=== PATIENT | male | born 1935 | race Caucasian/White ===

== ENCOUNTER 2016-11-22 22:30 | Emergency (ER) | payer MEDICARE ==
[2016-11-22 22:40] VITALS: BP 175/80; PULSE 63; RESP 18; TEMP 97.5; O2SAT 100
[2016-11-22 22:48] VITALS: BMI 20.3
--- NOTE | 2016-11-22 23:40 | ED PDOC ---
Arrival/HPI - General Historian: Patient, Family - History of Present Illness Time/Duration: Other (48 hours) Symptom Onset: Gradual Symptom Course: Worsening Activities at Onset: Rest, Light Context: Home <YOU WARREN - Last Filed: 11/23/16 01:13> <Carmela Velez - Last Filed: 11/23/16 01:35> - General Chief Complaint: Male Genitourinary Time Seen by Provider: 11/22/16 22:55 - History of Present Illness Narrative History of Present Illness (Text): 11/22/16 23:34 Mr. Gallagher is an 81 year old male with a past medical history significant for BPH and dementia who presents to [place] [facility] [place] with a chief complaint of hematuria of 48 hours duration. Patients niece was at bedside who helped provide translation and HPI when needed, as patients first language is indonesian. Patient reports that since Tuesday, he has had hematuria that has become progressively more gross with each void. Patient denies any dysuria, pyuria, voiding any blood clots, abdominal pain, flank pain, fever, chills, or weight loss. Patients niece reports that she spoke with Dr. Lina Moon on the phone earlier this afternoon and he stated that patient can either be seen by him in the office tomorrow or taken to the Emergency department for further evaluation. Patient also denies chest pain, palpitations, shortness of breath, cough, N/V, diarrhea, constipation, rashes, or any numbness/tingling/weakness of any extremity. (YOU WARREN) Past Medical History - Provider Review Nursing Documentation Reviewed: Yes - Travel History Have you recently traveled outside [place] w/in the past 3 mons?: No - Past History Past History: Non-Contributing - Infectious Disease Hx of Infectious Diseases: None - Tetanus Immunization Tetanus Immunization: Unknown - Cardiac Hx Cardiac Disorders: (denies) - Pulmonary Hx Respiratory Disorders: No (denies) - Neurological Hx Alzheimer's Disease: Yes Hx Dementia: Yes - HEENT Other/Comment: Diff. Hearing (Both Ears) - Renal Hx Renal Disorder: No - Endocrine/Metabolic Hx Endocrine Disorders: No - Hematological/Oncological Hx Blood Disorders: No - Integumentary Hx Dermatological Disorder: No - Musculoskeletal/Rheumatological Hx Musculoskeletal Disorders: No - Gastrointestinal Hx Gastrointestinal Disorders: No (DENIES) - Genitourinary/Gynecological Hx Genitourinary Disorders: Yes Hx Prostate Problems: Yes - Psychiatric Hx Psychophysiologic Disorder: No Hx Substance Use: No - Surgical History Other/Comment: abdl scar noted,somekind of abdl surgery cant remember. hernia removal 2015 - Anesthesia Hx Anesthesia: Yes Hx Anesthesia Reactions: No <YOU WARREN - Last Filed: 11/23/16 01:13> Family/Social History - Physician Review Nursing Documentation Reviewed: Yes Family/Social History: Unknown Family HX Smoking Status: Former Smoker Hx Alcohol Use: No Hx Substance Use: No <YOU WARREN - Last Filed: 11/23/16 01:13> Allergies/Home Meds <YOU WARREN - Last Filed: 11/23/16 01:13> <Carmela Velez - Last Filed: 11/23/16 01:35> Allergies/Adverse Reactions: Allergies No Known Allergies Allergy (Verified 01/21/15 19:32) Review of Systems - Physician Review All systems were reviewed & negative as marked: Yes - Review of Systems Constitutional: Normal. absent: Weight Change, Fevers, Night Sweats Eyes: Normal. absent: Vision Changes ENT: Normal Respiratory: Normal. absent: SOB, Cough Cardiovascular: Normal. absent: Chest Pain, Palpitations Gastrointestinal: Normal. absent: Abdominal Pain, Constipation, Diarrhea, Nausea, Vomiting Genitourinary Male: Hematuria, Other (denied pyruia or voiding any blood clots) . absent: Normal, Dysuria, Frequency Musculoskeletal: Normal. absent: Back Pain, Neck Pain Skin: Normal. absent: Rash Neurological: Normal. absent: Headache, Dizziness Endocrine: Normal Hemo/Lymphatic: Normal Psychiatric: Normal <YOU WARREN - Last Filed: 11/23/16 01:13> Physical Exam Vital Signs Reviewed: Yes Temperature: Afebrile Blood Pressure: Hypertensive Pulse: Regular Respiratory Rate: Normal Appearance: Positive for: Well-Appearing, Non-Toxic, Comfortable Pain Distress: None Mental Status: Positive for: Alert and Oriented X 3 - Systems Exam Head: Present: Atraumatic, Normocephalic Pupils: Present: PERRL Extroacular Muscles: Present: EOMI Conjunctiva: Present: Normal Mouth: Present: Moist Mucous Membranes Neck: Present: Normal Range of Motion, Trachea Midline. No: Meningeal Signs, MIDLINE TENDERNESS, Paraspinal Tenderness, JVD, Lymphadenopathy Respiratory/Chest: Present: Clear to Auscultation, Good Air Exchange. No: Respiratory Distress, Accessory Muscle Use, Wheezes, Decreased Breath Sounds, Rales, Retracting, Rhonchi, Tachypneic, Tender to Palpation Cardiovascular: Present: Regular Rate and Rhythm, Normal S1, S2, Peripheal Pulses Present. No: Murmurs, Irregular Rhythm, Tachycardic, Bradycardic Abdomen: Present: Normal Bowel Sounds. No: Tenderness, Distention, Peritoneal Signs Genitourinary Male: Present: Normal External Genitalia, Circumcised Penis. No: Lesions, Penile Discharge, Testicle Tenderness, Penile Swelling, Masses, Testicle Swelling Back: Present: Normal Inspection. No: CVA Tenderness, Midline Tenderness, Paraspinal Tenderness Upper Extremity: Present: Normal Inspection, Normal ROM, NORMAL PULSES, Capillary Refill < 2s. No: Cyanosis, Edema Lower Extremity: Present: Normal Inspection, NORMAL PULSES, Normal ROM, Capillary Refill < 2 s. No: Edema, CALF TENDERNESS Neurological: Present: GCS=15, CN II-XII Intact, Speech Normal Skin: Present: Warm, Dry, Normal Color. No: Rashes Lymphatic: No: Cervical Adenopathy, Inguinal Adenopathy Psychiatric: Present: Alert, Oriented x 3, Normal Insight, Normal Concentration <YOU WARREN - Last Filed: 11/23/16 01:13> Vital Signs Temp Pulse Resp BP Pulse Ox 11/22/16 22:40 97.5 F L 63 18 175/80 H 100 Medical Decision Making - Lab Interpretations I have reviewed the lab results: Yes - RAD Interpretation Slipman: Radiologist <YOU WARREN - Last Filed: 11/23/16 01:13> <Carmela Velez - Last Filed: 11/23/16 01:35> ED Course and Treatment: 11/22/16 23:43 Impression: 81 year old male with a past medical history significant for BPH and dementia who presents to [place] [facility] [place] with a chief complaint of hematuria of 48 hours duration Plan: -CBC, CMP, PT/INR, aPTT, Urinalysis, Urine culture and Urine myoglobin -CT abd/pelvis w/o contrast -Reassess and disposition Prior Visits: All reports and results from previous visits reviewed. 01/2015: Patient was seen and evaluated for difficulty with urination and hematuria 11/23/16 01:20 All results of all labwork and imaging studies explained to patient, including his AAA, kidney lesion and UTI. Patient in agreement to make scheduled appointment with Dr. Moon at 0930AM on 11/23 and to discuss the AAA with Dr. Riley. (YOU WARREN) patient seen and evalauted with resident. Agree with HPI, clinical findings, plan and treatment. Patient is a 81 year old male who presents to the emergency department complaining of hematuria for past 2 days. Patient is Salvadorean speaking, translation provided by nathaly who is bedside. Blood work is unremarkable. Urine shows UTI. Given a dose of rocephin and d/c on macrobid. CT done shows the kidney lesion as mentioned above as well as AAA. Results were conveyed to nathaly, and she understands crucial need for follow up. Also spoke with Dr. Moon, who said to have the patient follow up with him in the morning at 9:30 am in his [place] office. (Carmela Velez) - Lab Interpretations Lab Results: 11/23/16 00:15 11/23/16 00:15 Lab Results 11/23/16 00:15: Sodium 143, Potassium 4.6, Chloride 102, Carbon Dioxide 33, Anion Gap 13, BUN 16, Creatinine 1.0, Est GFR ( Amer) > 60, Est GFR (Non- Af Amer) > 60, Random Glucose 93, Calcium 9.5, Total Bilirubin 0.4, AST 27, ALT 17, Alkaline Phosphatase 86, Total Protein 7.2, Albumin 4.2, Globulin 3.0, Albumin/Globulin Ratio 1.4 11/23/16 00:15: PT 11.0, INR 1.02, APTT 27.0 11/23/16 00:15: WBC 5.5, RBC 4.34, Hgb 12.9 L, Hct 39.5 L, MCV 91.0, MCH 29.7, MCHC 32.7, RDW 14.4, Plt Count 243, MPV 10.3, Gran % 47.3 L, Lymph % (Auto) 35.3 H, Mckean % (Auto) 12.1 H, Eos % (Auto) 4.8, Baso % (Auto) 0.5, Gran # 2.59, Lymph # 1.9, Mckean # 0.7 H, Eos # 0.3, Baso # 0.03 11/23/16 00:00: Urine Color Red, Urine Appearance Cloudy, Urine pH 7.0, Ur Specific Hurley 1.020, Urine Protein 100 H, Urine Glucose (UA) Negative, Urine Ketones Trace H, Urine Blood Large H, Urine Nitrate Positive H, Urine Bilirubin Small H, Urine Urobilinogen 1.0 H, Ur Leukocyte Esterase Moderate H, Urine RBC Tntc, Urine WBC 10 - 15, Ur Epithelial Cells 0 - 2, Urine Bacteria Many - RAD Interpretation Radiology Orders: 11/22/16 23:30 ABD & PELVIS W/O PO OR IV CONT [CT] Stat - Medication Orders Current Medication Orders: Discontinued Medications Ceftriaxone Sodium (Rocephin 1 Gram Ivpb) 1 gm in 100 mls @ 200 mls/hr IV ONCE STA PRN Reason: Protocol Stop: 11/23/16 01:11 Last Admin: 11/23/16 01:17 Dose: 200 mls/hr eMAR Start Stop Document 11/23/16 01:17 OCS (Rec: 11/23/16 01:17 OCS [id number][place] Intravenous Solution Start Date 11/23/16 Start Time :17 - PA / FORK LIFT MECHANIC / Resident Statement / has reviewed & agrees with the documentation as recorded. / has examined the patient and agrees with the treatment plan. <Carmela Velez - Last Filed: 11/23/16 01:35> Disposition/Present on Arrival - Present on Arrival Any Indicators Present on Arrival: No History of DVT/PE: No History of Uncontrolled Diabetes: No Urinary Catheter: No History of Decub. Ulcer: No History Surgical Site Infection Following: None - Disposition Have Diagnosis and Disposition been Completed?: Yes Disposition Time: :17 Patient Plan: Discharge <YOU WARREN - Last Filed: 11/23/16 01:13> <Carmela Velez - Last Filed: 11/23/16 01:35> - Disposition Diagnosis: Hematuria, UTI (urinary tract infection) Disposition: HOME/ ROUTINE Patient Problems: Current Active Problems Problem Status Onset Hematuria Acute UTI (urinary tract infection) Acute Condition: STABLE Discharge Instructions (ExitCare): Urinary Tract Infection in Men (ED), Acute Hematuria (ED) Additional Instructions: Mr. Gallagher, thank you for letting us take care of you today. Your provider was Dr. Velez. You were treated for hematuria. The emergency medical care you received today was directed at your acute symptoms. If you were prescribed any medication, please fill it and take as directed. It may take several days for your symptoms to resolve. Return to the Emergency Department if your symptoms worsen, do not improve, or if you have any other problems. Please contact your doctor or call one of the physicians/clinics you have been referred to that are listed on the Patient Visit Information form that is included in your discharge packet. Bring any paperwork you were given at discharge with you along with any medications you are taking to your follow up visit. Our treatment cannot replace ongoing medical care by a primary care provider (PCP) outside of the emergency department. PLEASE FOLLOW UP WITH DR. Lina MOON AT YOUR SCHEDULED APPOINTMENT AT 9:30AM AT [facility] ON 11/23/2016. PLEASE FOLLOW UP WITH YOUR PRIMARY CARE DOCTOR WITHIN ONE WEEK TO DISCUSS ALL RESULTS, INCLUDING YOUR ABDOMINAL AORTIC ANEURYSM AND KIDNEY LESION. WE RECOMMEND THAT YOU OBTAIN AN MRI OF YOUR KIDNEYS FOR FURTHER CLARIFICATION OF THIS LESION. PLEASE TAKE ALL MEDICATIONS PRESCRIBED. Thank you for allowing the [facility] team to be part of your care today. If you had an X-Ray or CT scan: A Radiologist will review the ED reading if any change in treatment is needed we will contact you. If you had a blood, urine, or wound culture: It will take several days for the results, if any change in treatment is needed we will contact you. Prescriptions: Nitrofurantoin Macrocrystals [Macrobid] 100 mg PO BID #14 cap Referrals: Chris Riley Jr., MD [Primary Care Provider] - Follow up with primary Kvng Moon MD [Staff Provider] - Follow up with primary Forms: [employer] (Telugu)
[2016-11-23 00:25] LABS: URINE BILIRUBIN SMALL (NEGATIVE); URINE BLOOD LARGE (NEGATIVE); URINE GLUCOSE (UA) NEGATIVE (NEGATIVE); URINE KETONE TRACE mg/dL (NEGATIVE); URINE LEUKOCYTE ESTERASE MODERATE Leu/uL (NEGATIVE); URINE PROTEIN 100 mg/dL (<30 mg/dL)
[2016-11-23 00:28] LABS: URINE APPEARANCE CLOUDY (CLEAR); URINE COLOR RED (YELLOW)
--- NOTE | 2016-11-23 00:28 | CT ---
EXAM: CT Abdomen and Pelvis Without Intravenous Contrast CLINICAL HISTORY: 81 years old, male; Signs and symptoms; Other: Hematuria TECHNIQUE: Axial computed tomography images of the abdomen and pelvis without intravenous contrast. All CT scans at this facility use one or more dose reduction techniques, viz.: automated exposure control; ma/kV adjustment per patient size (including targeted exams where dose is matched to indication; i.e. head); or iterative reconstruction technique. Coronal and sagittal reformatted images were created and reviewed. COMPARISON: CT - ABD PELVIS W/O PO OR IV CONT 01/17/2015 10:34:56 AM FINDINGS: Limitations: Motion artifact - mild. Motion artifact - mild. Lower thorax: Borderline cardiomegaly. Coronary artery calcifications. Minimal atelectasis. ABDOMEN: Liver: Several probable hepatic cysts, grossly stable. Gallbladder and bile ducts: No calcified stones. No ductal dilation. Pancreas: Unremarkable. No ductal dilation. Spleen: No splenomegaly. Adrenals: No mass. Kidneys and ureters: Probable 1.3 x 1.4 x 1.1 cm RIGHT renal cyst. 2.1 x 2.4 x 1.8 cm septated hypodense lesion within LEFT kidney, incompletely characterized. No renal calculi. No hydronephrosis. Stomach and bowel: Postsurgical changes of sigmoid colon. Scattered diverticula within colon. No associated inflammatory stranding. No definite mural thickening. No obstruction. Appendix: Normal caliber. No inflammation. PELVIS: Bladder: Unremarkable. No stones. Reproductive: Enlarged prostate gland. ABDOMEN and PELVIS: Intraperitoneal space: No significant fluid collection. No free air. Bones/joints: Degenerative changes of spine. No acute fracture. Soft tissues: Few tiny ventral hernias containing fat. Vasculature: Moderate atherosclerotic disease. LEFT renal artery stent. 3.6 cm infrarenal abdominal aortic aneurysm, increased from previous examination. Lymph nodes: No pathologically enlarged lymph nodes. IMPRESSION: 1. No CT evidence of urolithiasis. 2. Kidney lesion, incompletely characterized. Recommend nonemergent MRI. 3. Prostate enlargement. Followup as clinically warranted. 4. Abdominal aortic aneurysm. Followup as warranted. 5. Incidental/non-acute findings are described above.
[2016-11-23 00:36] LABS: BASO # 0.03 K/mm3 (0.0-2.0); BASO % 0.5 % (0.0-3.0); EOS # 0.3 (0.0-0.7); EOS % 4.8 % (1.5-5.0); GRAN # 2.59 (1.4-6.5); GRAN % 47.3 % (50.0-68.0); HEMATOCRIT 39.5 % (42.0-52.0); LYMPH # 1.9 (1.2-3.4); LYMPH % 35.3 % (22.0-35.0); MEAN CORPUSCULAR HEMOGLOBIN 29.7 pg (25.0-35.0); MEAN CORPUSCULAR HGB CONC 32.7 g/dl (31.0-37.0); MEAN PLATELET VOLUME 10.3 fl (7.0-11.0); MONO # 0.7 (0.1-0.6); MONO % 12.1 % (1.0-6.0); RED CELL DISTRIBUTION WIDTH 14.4 % (11.5-14.5); WHITE BLOOD COUNT 5.5 10^3/ul (4.5-11.0)
[2016-11-23 00:39] LABS: URINE BACTERIA MANY (NEG); URINE EPITHELIAL CELLS 0 - 2 /hpf (0-5); URINE RBC TNTC /hpf (0-2)
[2016-11-23] MEDS ORDERED: cefTRIAXone 1 gm 1 GM/100 ML BAG IV STA (00:42)
[2016-11-23 00:43] LABS: ALB/GLOB RATIO 1.4 (1.1-1.8); ALKALINE PHOSPHATASE 86 U/L (38-126); ALT/SGPT 17 U/L (7-56); AST/SGOT 27 U/L (17-59); BILIRUBIN,TOTAL 0.4 mg/dL (0.2-1.3); BLOOD UREA NITROGEN 16 mg/dL (7-21); CALCIUM 9.5 mg/dL (8.4-10.5); CARBON DIOXIDE 33 mmol/L (21-33); CHLORIDE 102 mmol/L (98-107); GFR AFRICAN-AMERICAN > 60; GLUCOSE,RANDOM 93 mg/dL (70-110); POTASSIUM 4.6 mmol/L (3.6-5.0); SODIUM 143 mmol/L (132-148); TOTAL PROTEIN 7.2 g/dL (5.8-8.3)
[2016-11-23 00:45] LABS: INR 1.02 (0.93-1.08)
== END 2016-11-23 02:05 | disposition home or self-care (01) ==
LOC: ED 22:30
DX: R31.9 Hematuria, unspecified (principal); N39.0 Urinary tract infection, site not specified; N40.1 Benign prostatic hyperplasia with lower urinary tract symptoms; G30.9 Alzheimer's disease, unspecified; F02.80 Dementia in other diseases classified elsewhere, unspecified severity, without behavioral disturbance, psychotic disturbance, mood disturbance, and anxiety
CPT/HCPCS: 74176; 80053; 81001; 83874; 85025; 85610; 85730; 87086; 96374; 99283; J0696

== ENCOUNTER 2017-05-11 20:56 | Emergency (ER) | payer MEDICARE ==
[2017-05-11] MEDS ORDERED: TDAP Vaccine 0.5 mL Syr IM ONE (21:22)
[2017-05-11] MEDS ORDERED: Bacitracin Ointment 30 GM TUBE TOP ONE (21:22)
--- NOTE | 2017-05-11 21:23 | ED PDOC ---
Arrival/HPI - General Chief Complaint: Abnormal Skin Integrity Time Seen by Provider: 05/11/17 21:15 Historian: Patient - History of Present Illness Narrative History of Present Illness (Text): 05/11/17 21:22 A 82 year old male presents to the emergency department accompanied by daughter complaining of a rash to his face. Patient reports he developed the rash shortly after dry shaving with an older razor. Patient denies any fever, chills , nausea, vomiting, abdominal pain, chest pain, shortness of breath or any other complaints. Past Medical History - Provider Review Nursing Documentation Reviewed: Yes - Past History Past History: Non-Contributing - Infectious Disease Hx of Infectious Diseases: None - Tetanus Immunization Tetanus Immunization: Unknown - Cardiac Hx Cardiac Disorders: (denies) - Pulmonary Hx Respiratory Disorders: No (denies) - Neurological Hx Alzheimer's Disease: Yes Hx Dementia: Yes - HEENT Other/Comment: Diff. Hearing (Both Ears) - Renal Hx Renal Disorder: No - Endocrine/Metabolic Hx Endocrine Disorders: No - Hematological/Oncological Hx Blood Disorders: No - Integumentary Hx Dermatological Disorder: No - Musculoskeletal/Rheumatological Hx Musculoskeletal Disorders: No - Gastrointestinal Hx Gastrointestinal Disorders: No (DENIES) - Genitourinary/Gynecological Hx Genitourinary Disorders: Yes Hx Prostate Problems: Yes - Psychiatric Hx Psychophysiologic Disorder: No Hx Substance Use: No - Surgical History Other/Comment: abdl scar noted,somekind of abdl surgery cant remember. hernia removal 2015 - Anesthesia Hx Anesthesia: Yes Hx Anesthesia Reactions: No Family/Social History - Physician Review Nursing Documentation Reviewed: Yes Family/Social History: No Known Family HX Smoking Status: Former Smoker Hx Alcohol Use: No Hx Substance Use: No Allergies/Home Meds Allergies/Adverse Reactions: Allergies No Known Allergies Allergy (Verified 05/11/17 21:18) Home Medications: Home Meds Medication Instructions Recorded Confirmed Finasteride [Proscar] 1 tab PO DAILY 02/19/17 02/19/17 Review of Systems - Physician Review All systems were reviewed & negative as marked: Yes - Review of Systems Constitutional: absent: Fevers, Night Sweats Respiratory: absent: SOB Cardiovascular: absent: Chest Pain Gastrointestinal: absent: Abdominal Pain, Nausea, Vomiting Skin: Rash (to face) Physical Exam Appearance: Positive for: Well-Appearing, Non-Toxic, Comfortable Pain Distress: None Mental Status: Positive for: Alert and Oriented X 3 - Systems Exam Head: Present: Atraumatic, Normocephalic Pupils: Present: PERRL Extroacular Muscles: Present: EOMI Conjunctiva: Present: Normal Mouth: Present: Moist Mucous Membranes Neck: Present: Normal Range of Motion Respiratory/Chest: Present: Clear to Auscultation, Good Air Exchange. No: Respiratory Distress, Accessory Muscle Use Cardiovascular: Present: Regular Rate and Rhythm, Normal S1, S2. No: Murmurs Abdomen: Present: Normal Bowel Sounds. No: Tenderness, Distention, Peritoneal Signs Upper Extremity: Present: Normal Inspection. No: Cyanosis, Edema Lower Extremity: Present: Normal Inspection. No: Edema Neurological: Present: GCS=15, CN II-XII Intact, Speech Normal Skin: Present: Warm, Dry, Normal Color, Other (Erythematous scabbing cellulitis to chin and jawline. No pus or discharge.) Psychiatric: Present: Alert, Oriented x 3, Normal Insight, Normal Concentration Medical Decision Making ED Course and Treatment: 05/11/17 21:22 Impression: A 82 year old male with a rash to his face after shaving Differential Diagnosis included but are not limited to: Cellulitis Plan: -- Bacitracin, Boostrix and Clindamycin -- Reassess and disposition Progress Notes: I have discussed the plan with the patient, who expresses understanding. Patient in agreement with plan to be discharged home. Patient is stable for discharge. Patient was instructed to follow up with physician or return if symptoms worsen or new concerning symptoms arise. - Medication Orders Current Medication Orders: Clindamycin Phosphate 900 mg/ (Sodium Chloride) 106 mls @ 106 mls/hr IVPB STAT STA PRN Reason: Protocol Stop: 05/11/17 22:20 Discontinued Medications Bacitracin (Bacitracin) 0 gm TOP ONCE ONE Stop: 05/11/17 21:23 Tetanus/Reduced Diphtheria/Acell Pertussis (Boostrix Vaccine Inj) 0.5 ml IM .ONCE ONE Stop: 05/11/17 21:23 - PA / TANKROOM TENDER / Resident Statement MD/DO has reviewed & agrees with the documentation as recorded. - Scribe Statement The provider has reviewed the documentation as recorded by the Jesusitaibe Yesenia Jc Provider Scribe Attestation: All medical record entries made by the Scribe were at my direction and personally dictated by me. I have reviewed the chart and agree that the record accurately reflects my personal performance of the history, physical exam, medical decision making, and the department course for this patient. I have also personally directed, reviewed, and agree with the discharge instructions and disposition. Disposition/Present on Arrival - Present on Arrival Any Indicators Present on Arrival: No History of DVT/PE: No History of Uncontrolled Diabetes: No Urinary Catheter: No History of Decub. Ulcer: No History Surgical Site Infection Following: None - Disposition Have Diagnosis and Disposition been Completed?: Yes Diagnosis: Diffuse cellulitis of face Disposition: HOME/ ROUTINE Disposition Time: 21:26 Patient Plan: Discharge Patient Problems: Current Active Problems Problem Status Onset Diffuse cellulitis of face Acute Condition: GOOD Discharge Instructions (ExitCare): Cellulitis (ED) Additional Instructions: Mr Gallagher- Wash four or five times a day with antibacterial soap Use triple antibiotic ointment afterwards Cleocin is four times a day Follow up with your doctor Return to us if worse or problems Best- Dr. René Pedraza Prescriptions: Clindamycin [Cleocin] 300 mg PO QID #40 cap Referrals: Michelle Wilson, [Primary Care Provider] - Follow up with primary Forms: [employer] (Guinean)
[2017-05-12 11:47] VITALS: BP 115/82; PULSE 70; RESP 17; TEMP 98; O2SAT 100; BMI 24.0
== END 2017-05-11 23:49 | disposition home or self-care (01) ==
LOC: ED 20:56
DX: L03.211 Cellulitis of face (principal); F02.80 Dementia in other diseases classified elsewhere, unspecified severity, without behavioral disturbance, psychotic disturbance, mood disturbance, and anxiety; G30.9 Alzheimer's disease, unspecified; Z87.891 Personal history of nicotine dependence; Z23 Encounter for immunization

== ENCOUNTER 2017-05-12 18:44 | Emergency (ER) | payer MEDICARE ==
[2017-05-12 20:08] VITALS: BMI 20.9
[2017-05-12 20:10] VITALS: BP 164/64; RESP 18; TEMP 98.9
[2017-05-12 20:13] VITALS: PULSE 68; O2SAT 100
--- NOTE | 2017-05-12 20:56 | ED PDOC ---
Arrival/HPI - General Chief Complaint: Allergic Reaction Time Seen by Provider: 05/12/17 20:55 Historian: Patient - History of Present Illness Narrative History of Present Illness (Text): 05/12/17 20:56 This 82 yo male presents to this ED for evaluation of facial cellulitis. Patient stated he developed skin facial infection x 2 days ago. Patient was seen in this ED last night and given ABX. Patient stated he did not take antibiotic by mouth since he had been applying topical ABX. Time/Duration: Other (see hpi) Context: Home Past Medical History - Provider Review Nursing Documentation Reviewed: Yes - Past History Past History: Non-Contributing - Infectious Disease Hx of Infectious Diseases: None - Tetanus Immunization Tetanus Immunization: Unknown - Cardiac Hx Cardiac Disorders: No (denies) - Pulmonary Hx Respiratory Disorders: No (denies) - Neurological Hx Alzheimer's Disease: Yes Hx Dementia: Yes - HEENT Other/Comment: Diff. Hearing (Both Ears) - Renal Hx Renal Disorder: No - Endocrine/Metabolic Hx Endocrine Disorders: No - Hematological/Oncological Hx Blood Disorders: No - Integumentary Hx Dermatological Disorder: No - Musculoskeletal/Rheumatological Hx Musculoskeletal Disorders: No - Gastrointestinal Hx Gastrointestinal Disorders: No (DENIES) - Genitourinary/Gynecological Hx Genitourinary Disorders: Yes Hx Prostate Problems: Yes - Psychiatric Hx Psychophysiologic Disorder: No Hx Substance Use: No - Surgical History Other/Comment: abdl scar noted,somekind of abdl surgery cant remember. hernia removal 2015 - Anesthesia Hx Anesthesia: Yes Hx Anesthesia Reactions: No Family/Social History - Physician Review Nursing Documentation Reviewed: Yes Family/Social History: Other (noncontributory) Smoking Status: Former Smoker Hx Alcohol Use: No Hx Substance Use: No Allergies/Home Meds Allergies/Adverse Reactions: Allergies No Known Allergies Allergy (Verified 05/12/17 20:08) Home Medications: Home Meds Medication Instructions Recorded Confirmed Finasteride [Proscar] 1 tab PO DAILY 02/19/17 05/12/17 Review of Systems - Review of Systems Constitutional: Normal. absent: Fatigue, Weight Change, Fevers Eyes: Normal ENT: Normal Respiratory: Normal Cardiovascular: Normal Gastrointestinal: Normal Genitourinary Male: Normal Musculoskeletal: Normal Skin: Cellulitis Neurological: Normal Endocrine: Normal Hemo/Lymphatic: Normal Psychiatric: Normal Physical Exam Vital Signs Temp Pulse Resp BP Pulse Ox 05/12/17 20:09 98.9 F 68 18 164/64 H 100 05/12/17 20:08 98.9 F 65 18 164/64 H 98 Temperature: Afebrile Blood Pressure: Normal Pulse: Regular Respiratory Rate: Normal Appearance: Positive for: Well-Appearing, Non-Toxic, Comfortable Pain Distress: None Mental Status: Positive for: Alert and Oriented X 3 - Systems Exam Head: Present: Atraumatic, Normocephalic Mouth: Present: Moist Mucous Membranes Neck: Present: Normal Range of Motion Upper Extremity: Present: Normal Inspection, Normal ROM Lower Extremity: Present: Normal Inspection, Normal ROM Neurological: Present: GCS=15, CN II-XII Intact, Speech Normal Skin: Present: Warm, Dry, Rashes (facial rash with secondary cellulitis b/l), Normal Color Lymphatic: No: Cervical Adenopathy Psychiatric: Present: Alert, Oriented x 3, Normal Insight, Normal Concentration Medical Decision Making ED Course and Treatment: 05/12/17 23:[address] Pedraza had examined pt. Re-evaluation Time: 23:16 Reassessment Condition: Re-examined, Improved - Medication Orders Current Medication Orders: Discontinued Medications Clindamycin Phosphate 900 mg/ (Sodium Chloride) 106 mls @ 106 mls/hr IVPB STAT STA PRN Reason: Protocol Stop: 05/12/17 21:54 Last Admin: 05/12/17 22:09 Dose: 106 mls/hr eMAR Start Stop Document 05/12/17 22:09 CNR (Rec: 05/12/17 22:10 CNR [id number]) Intravenous Solution Start Date 05/12/17 Start Time 22:09 End Date 05/12/17 End time 23:09 Total Infusion Time 60 Mupirocin (Bactroban Ointment) 1 gm TOP STAT STA Stop: 05/12/17 20:56 Disposition/Present on Arrival - Present on Arrival Any Indicators Present on Arrival: No History of DVT/PE: No History of Uncontrolled Diabetes: No Urinary Catheter: No History of Decub. Ulcer: No History Surgical Site Infection Following: None - Disposition Have Diagnosis and Disposition been Completed?: Yes Diagnosis: Facial cellulitis Disposition: HOME/ ROUTINE Disposition Time: 23:23 Patient Plan: Discharge Condition: GOOD Discharge Instructions (ExitCare): Cellulitis (ED) Additional Instructions: Comienze con los antibioticos en la manana. Tomelo 4 veces al vanessa. Aplique cream en la vish 2 veces al vanessa. Limpie la herida con agua y jabon solamente. No utilize agua oxigenada o alcohol. Regrese a la emergencia si infection empeora. Llene la prescription de antibiotico que le fue prescrita lucas Prescriptions: Mupirocin 2% Ointment [Bactroban Ointment] 1 appl TP BID #1 tube Referrals: Chris Riley Jr., MD [Primary Care Provider] - Follow up with primary Forms: [employer] ([place])
== END 2017-05-12 23:37 | disposition home or self-care (01) ==
LOC: ED 18:44
DX: L03.211 Cellulitis of face (principal); Z87.891 Personal history of nicotine dependence; F02.80 Dementia in other diseases classified elsewhere, unspecified severity, without behavioral disturbance, psychotic disturbance, mood disturbance, and anxiety; G30.9 Alzheimer's disease, unspecified